=== PATIENT | female | born 1985 | race Caucasian/White ===

== ENCOUNTER 2021-07-22 18:49 | Emergency (ER) | payer MEDICAID ==
[~2021-07-22] VITALS: Ht 167.6 cm; Wt 104.3 kg
[~2021-07-22 18:49] MED LIST: IBUP800T27
[2021-07-23 00:50] VITALS: BP 148/86
[2021-07-23] MEDS ORDERED: IBUP800T27 PO (00:55)
[2021-07-23] MEDS ORDERED: CIPR1SUS8 RIGHT EAR (00:55)
[2021-07-23] MEDS ORDERED: AZITTAB PO (00:55)
== END 2021-07-23 01:11 | disposition home or self-care (01) ==
LOC: ER 18:51
DX: H66.91 Otitis media, unspecified, right ear (principal); H93.11 Tinnitus, right ear; E66.9 Obesity, unspecified; F17.210 Nicotine dependence, cigarettes, uncomplicated; J45.909 Unspecified asthma, uncomplicated; Z68.37 Body mass index [BMI] 37.0-37.9, adult

== ENCOUNTER 2023-04-21 10:39 | Emergency (ER) | payer MEDICAID ==
[~2023-04-21 10:39] MED LIST changes: +AZITTAB PO; +CIPR1SUS8 RIGHT EAR; +IBUP-1456; +IBUP-1456 PO; -IBUP800T27
[2023-04-21 12:09] LABS: Basophils # (auto) 0 10 ^3/uL (0-0.2); Basophils % (auto) 0.2 % (0.0-2.0); Eosinophils # (auto) 0 10 ^3/uL (0-0.8); Eosinophils % (auto) 0.3 % (0.0-7.0); Hematocrit 34.6 % (36.0-46.0); Hemoglobin 11.5 g/dL (12.2-16.2); Lymphocytes # (auto) 1.5 10 ^3/uL (0.4-5.4); Lymphocytes % (auto) 14.6 % (10.0-50.0); Mean Corpuscular Hemoglobin 28.3 pg (28.0-32.0); Mean Corpuscular Hgb Conc. 33.2 g/dL (32.0-36.0); Mean Corpuscular Volume 85.3 fL (80.0-100.0); Monocytes # (auto) 0.6 10 ^3/uL (0-1.3); Monocytes % (auto) 5.6 % (0.0-12.0); Neutrophils # (auto) 8.1 10 ^3/uL (1.6-8.6); Neutrophils % (auto) 79.3 % (37.0-80.0); Red Blood Cells 4.06 10^6/uL (4.0-5.20); Red Cell Distribution Width 15.3 % (11.8-14.3); White Blood Cell 10.2 10^3/uL (4.4-10.8)
[2023-04-21 12:10] LABS: Urine Bacteria FEW /hpf (None Seen); Urine Blood Negative /uL (Negative); Urine Clarity Clear (Clear); Urine Color Yellow (Yellow); Urine Protein, UAD Negative (Negative); Urine Specific Gravity 1.011 (1.001-1.035); Urine Urobilinogen Normal (Negative); Urine WBC 1 /hpf (0 - 5)
[2023-04-21 12:16] VITALS: BP 150/81; PULSE 82; RESP 18; TEMP 98.4; O2SAT 98
== END 2023-04-21 13:18 | disposition home or self-care (01) ==
LOC: ER 10:39
DX: O20.8 Other hemorrhage in early pregnancy (principal); R10.2 Pelvic and perineal pain; O99.331 Smoking (tobacco) complicating pregnancy, first trimester; O99.511 Diseases of the respiratory system complicating pregnancy, first trimester; J45.909 Unspecified asthma, uncomplicated; Z79.1 Long term (current) use of non-steroidal anti-inflammatories (NSAID); Z79.2 Long term (current) use of antibiotics; Z88.1 Allergy status to other antibiotic agents; Z88.8 Allergy status to other drugs, medicaments and biological substances; Z3A.09 9 weeks gestation of pregnancy
CPT/HCPCS: 36415; 76801; 81001; 81025; 84702; 85025

== ENCOUNTER 2023-06-29 23:26 | Observation (INO) | payer MEDICAID ==
[~2023-06-29] VITALS: Ht 167.6 cm; Wt 100.0 kg
[2023-06-29 23:39] VITALS: BP 93/53; PULSE 86; RESP 18; O2SAT 98
[2023-06-29] MEDS ORDERED: ACETAMINOPHEN 325 MG TAB PO ONE (23:45)
[2023-06-30 01:03] LABS: Urine Bacteria FEW /hpf (None Seen); Urine Blood Negative /uL (Negative); Urine Clarity Clear (Clear); Urine Color Colorless (Yellow); Urine Protein, UAD Negative (Negative); Urine Specific Gravity 1.002 (1.001-1.035); Urine Urobilinogen Normal (Negative); Urine WBC <1 /hpf (0 - 5)
== END 2023-06-30 00:55 | disposition left against medical advice (07) ==
LOC: ER 23:26 → LDRP 06-30 00:20
PROVIDERS: ADMIT Obstetrics & Gynecology; ATTEND Obstetrics & Gynecology
DX: O03.4 Incomplete spontaneous abortion without complication (principal); O26.892 Other specified pregnancy related conditions, second trimester; R10.9 Unspecified abdominal pain; O99.332 Smoking (tobacco) complicating pregnancy, second trimester; F17.210 Nicotine dependence, cigarettes, uncomplicated; O99.512 Diseases of the respiratory system complicating pregnancy, second trimester; J45.909 Unspecified asthma, uncomplicated; O10.912 Unspecified pre-existing hypertension complicating pregnancy, second trimester; Z3A.19 19 weeks gestation of pregnancy; Z53.29 Procedure and treatment not carried out because of patient's decision for other reasons; Z79.899 Other long term (current) drug therapy
CPT/HCPCS: 59025; 81001; 99284; G0378